=== PATIENT | male | born 1965 | race Asian ===

== ENCOUNTER 2017-10-07 11:22 | Emergency (ER) | payer OTHER ==
[~2017-10-07] VITALS: Ht 172.7 cm; Wt 80.0 kg
[2017-10-07] MEDS ORDERED: ATOR10TA PO (11:26)
[2017-10-07] MEDS ORDERED: KETOROLAC 30MG/ML VIAL IV STA (14:44)
[2017-10-07 16:29] LABS: BASOPHILS % 0.3 % (0.0-2.0); EOSINOPHILS % 0.1 % (0.0-5.0); HEMATOCRIT. 44.2 % (42.0-52.0); HEMOGLOBIN. 15.5 g/dL (14.0-18.0); LYMPHOCYTES % 7.8 % (20.0-50.0); MEAN CORPUSCULAR HEMOGLOBIN 32.1 pg (28.0-32.0); MEAN CORPUSCULAR VOLUME 91.8 fL (80.0-94.0); MEAN PLATELET VOLUME 7.8 fl (7.4-10.4); MONOCYTES % 3.6 % (2.0-8.0); NEUTROPHILS % 88.2 % (40.0-76.0); PLATELET 232 x1000/uL (130-400); RED BLOOD CELL COUNT 4.82 mill/uL (4.7-6.1); RED CELL DISTRIBUTION WIDTH 13.3 % (11.6-14.6)
[2017-10-07 16:32] LABS: CHLORIDE 107 mEq/L (98-107)
[2017-10-07 17:42] LABS: CLARITY URINE CLEAR (CLEAR); COLOR URINE YELLOW (YELLOW); KETONES URINE NEGATIVE (NEGATIVE); LEUKOCYTE ESTERASE URINE NEGATIVE (NEGATIVE); NITRITE URINE NEGATIVE (NEGATIVE); OCCULT BLOOD URINE 2+ (NEGATIVE); PROTEIN URINE TRACE (NEGATIVE)
[2017-10-07 18:50] VITALS: BP 127/74
== END 2017-10-07 18:52 | disposition home or self-care (01) ==
LOC: ER 11:28
DX: N20.0 Calculus of kidney (principal); E78.00 Pure hypercholesterolemia, unspecified
CPT/HCPCS: 36415; 76770; 80053; 81003; 85025; 96374; 99285; J1885